=== PATIENT | male | born 1955 | race Caucasian/White ===

== ENCOUNTER 2019-01-31 12:22 | Day surgery (SDC) ==
--- NOTE | 2019-01-30 13:12 | EKG Report ---
Test Performed on : 01/30/2019 1:01:14 PM Test Reason : PAT Blood Pressure : / mmHG Vent. Rate : 065 BPM Atrial Rate : 065 BPM P-R Int : 162 ms QRS Dur : 074 ms QT Int : 374 ms P-R-T Axes : 007 -03 040 degrees QTc Int : 388 ms Normal sinus rhythm. Normal ECG No previous ECGs available Confirmed by Ok Jerome MD ([id number]) on 01/31/2019 6:25:03 AM
[2019-01-30 13:22] LABS: HEMATOCRIT 45.2 % (42.0-52.0); MCH 30.2 PG (27-31); MCHC 33.2 g/dL (33-37); MCV 90.9 FL (81-99); RBC 4.97 XMIL (4.7-6.1); RDW 13.4 % (11.5-14.5); WBC 11.95 X1000 (4.8-10.8)
[2019-01-30 13:48] LABS: AGAP 10; BUN 14 mg/dL (8-22); CALCIUM 9.6 mg/dL (8.8-10.2); CHLORIDE 101 mmol/L (98-107); COSMO 280; CREATININE 0.6 mg/dL (0.7-1.2); ESTIMATED GFR > 60; GLUCOSE 128 mg/dL (70-104); POTASSIUM 4.7 mmol/L (3.5-5.1); SODIUM 139 mmol/L (136-145); TCO2 28 mmol/L (25-35)
[2019-01-31] MEDS ORDERED: PEPCID ONE (12:53)
[2019-01-31] MEDS ORDERED: REGLAN ONE (12:53)
[2019-01-31] MEDS ORDERED: VALIUM ONE (12:54)
[2019-01-31] MEDS ORDERED: KEFZOL 1 GM/D5W 1 GM/50 ML IVPB ONE (12:54)
[2019-01-31] MEDS ORDERED: LR 1,000 ML ONE ×2 (12:54→16:20)
[2019-01-31] MEDS ORDERED: XYLOCAINE-MPF 1%/EPI 1:200,000 ONE (14:26)
[2019-01-31] MEDS ORDERED: MARCAINE 0.25% PF/EPI 1:200,000 ONE (14:26)
[2019-01-31] MEDS ORDERED: KEFZOL ONE (14:26)
[2019-01-31] MEDS ORDERED: SODIUM CHLORIDE 0.9% ONE (14:27)
[2019-01-31] MEDS ORDERED: DIPRIVAN 1% ONE (14:51)
[2019-01-31] MEDS ORDERED: ZEMURON ONE (14:51)
[2019-01-31] MEDS ORDERED: QUELICIN (DOSE) ONE (14:51)
[2019-01-31] MEDS ORDERED: DECADRON ONE (14:51)
[2019-01-31] MEDS ORDERED: XYLOCAINE-MPF 2% ONE (14:51)
[2019-01-31] MEDS ORDERED: OFIRMEV 1000 MG/ISOTONIC SOLN 1,000 MG/100 ML BOTTLE ONE (14:51)
[2019-01-31] MEDS ORDERED: ZOFRAN ONE (14:51)
[2019-01-31] MEDS ORDERED: DILAUDID ONE (14:55)
[2019-01-31] MEDS ORDERED: ROBINUL ONE (15:37)
[2019-01-31] MEDS ORDERED: NEOSTIGMINE ONE ×2 (15:38)
[2019-01-31] MEDS ORDERED: SENSORCAINE 0.25%/EPI 1:200,000 ONE (15:46)
[2019-01-31] MEDS: PHENERGAN ONE ×2 (16:06→16:15)
[2019-01-31] MEDS: DILAUDID ONE ×4 (16:20→16:50)
--- NOTE | 2019-01-31 16:55 | OPERATIVE NOTE ---
PROCEDURE DATE : 01/31/2019 THORACOPLASTY, RIGHT ANTEROLATERAL CHEST WALL SURGEON: Dr. Champ Ryan. CHOIR ACCOMPANIST: Dr. Rosen, who assisted throughout the completion of the procedure, with exposure and suturing and approximation of the ribs. PREOPERATIVE DIAGNOSIS: Hernia between the 9th and 10th ribs, right anterolateral chest wall. POSTOPERATIVE DIAGNOSIS: Hernia between the 9th and 10th ribs, right anterolateral chest wall. ANESTHESIA: General endotracheal. INDICATION: A 63-year-old who had had trauma in the past and had separation between the ribs with bulging. He desired a repair of this defect. CT scan showed a separation or tear of the muscle layers or deep to the external oblique aponeurosis. DESCRIPTION OF PROCEDURE: After satisfactory induction of general endotracheal anesthesia, the patient was bumped up slightly, right side up, and then the abdomen and right flank were prepped and draped in a sterile fashion. An Ioban drape was used. We made a longitudinal uzma on the Ioban 15 cm long. We anesthetized the skin with 0.5% Marcaine with epinephrine. We made an oblique incision. We then carried our incision through the subcutaneous tissue through the fascia down to the external oblique aponeurosis. We could identify what appeared to be the 10th rib, which seemed somewhat mobile, and the 9th rib above. This space was exaggerated due to the underlying torn muscle. We then the external oblique aponeurosis between, and split it slightly to expose the complete loss of muscle deep to this. We dissected medially and dissected to the anterior rectus sheath of the fascia medially that was contributed to by the external oblique and the internal oblique. Laterally, we dissected until we could reach what we thought was some deeper muscle, possibly some of the torn internal oblique. Inferiorly it was the 10th rib that seemed to be floating, and then superior there was the 9th rib. This defect measured about 10 cm x 5 cm. We then decided to approximate the ribs using #2 nonabsorbable suture, Surgidac. So we then exposed and cleaned the muscle off the superior rib, the 9th rib, and then actually exposed the 10th rib as well. We drilled a hole through the 10th rib. We then passed the #2 suture around the 9th rib and then passed it through the 10th rib, and then pulled those together. This approximated the ribs to their normal apposition. The tips of the ribs came close together, and so we exposed the perichondrium of both of them and passed the #2 Surgidac stitch through the perichondrium on each side, and secured that. So that stabilized the ribs together both proximally and distally, proximally through the bone and distally through the perichondrium. We then chose a 12 cm x [address] mesh by [employer] and laid it over these ribs. Again, we had not entered the peritoneum at all, and we had not entered the pleural space. We had dissected in the space near the diaphragm. So we secured the mesh to the fascia medially with two 0 Fraziers Bottom [id number] stitches. We secured the mesh to the 9th rib with a #2 Surgidac stitch. We went through the rim of the mesh and held it secure there. We added an additional stitch to the 10th rib as well, more proximally. We then added a Fraziers Bottom stitch most directly posteriorly to approximate the mesh to the muscle. We did this twice. We added 1 additional Fraziers Bottom stitch near the 10th rib more anteriorly. So, this secured the mesh to the fascia medially, the muscle laterally, and both ribs, caudad and cephalad. We felt good about our repair. It was secure. We then allowed the external oblique muscle to lie over the mesh, and we approximated it without necrosing the muscle with 0 Polysorb [id number] stitches. The subcutaneous tissue was then closed with interrupted 3-0 Polysorbs. We then once again injected with 0.5% Marcaine with epinephrine in the subcutaneous tissue along the course of the incision, and then closed the skin with a 4-0 Polysorb subcuticular stitch. A sterile OpSite island dressing was applied. He tolerated it well and was sent to the recovery room in satisfactory condition. cc: Champ Ryan MD
[2019-01-31] MEDS ORDERED: PERCOCET-10 ONE (17:04)
[2019-01-31] MEDS ORDERED: ATIVAN PO PRN (17:48)
[2019-01-31] MEDS ORDERED: ZOFRAN IV PRN (17:48)
[2019-01-31] MEDS ORDERED: NORCO-10 PO PRN (17:48)
[2019-01-31] MEDS: LR 1,000 ML IV SCH (18:04)
[2019-01-31] MEDS: DILAUDID IV PRN ×2 (19:15→22:00)
[2019-01-31] MEDS: PERCOCET-10 PO PRN ×2 (20:29→23:51)
[2019-01-31] MEDS: PERIDEX MT SCH (20:32)
[2019-01-31] MEDS ORDERED: ZOCOR PO SCH (21:00)
[2019-02-01] MEDS: DILAUDID IV PRN ×3 (01:17→11:46)
[2019-02-01] MEDS: PERCOCET-10 PO PRN ×2 (04:20→08:53)
[2019-02-01] MEDS: LR 1,000 ML IV SCH (06:57)
[2019-02-01] MEDS: PERIDEX MT SCH (08:55)
[2019-02-01] MEDS ORDERED: PRINIVIL PO SCH (09:00)
[2019-02-01] MEDS ORDERED: SYNTHROID PO SCH (09:00)
[2019-02-01] MEDS ORDERED: PROZAC PO SCH (09:00)
[2019-02-01 11:09] VITALS: BP 147/85
--- NOTE | 2019-02-01 11:20 | GENERAL SURGERY PROGRESS NOTE ---
DATE: 02/01/2019 TIME: 10:50 in the morning. Mr. Moreno is doing well. His hemodynamics are good. His pain is controlled. His bandage is dry. The plan is discharge him today. We will give something for pain, which he takes already Percocet. I have instructed regarding wound care. He is to leave his bandage on for 3 days. He is to the call the office to come back and see me in 7-10 days. cc: Champ Ryan MD
== END 2019-02-01 12:25 | disposition home or self-care (01) ==
LOC: PAT 12:22 → OPS 12:22 → 4N 12:22 → OPS 02-01 12:25
PROVIDERS: ATTEND Surgery